=== PATIENT | male | born 1950 | race African-American/Black ===

== ENCOUNTER 2017-04-10 23:59 | Emergency (ER) | payer MEDICARE, MEDICAID ==
[~2017-04-10] VITALS: Ht 193 cm; Wt 110.0 kg
[2017-04-11 01:08] LABS: BASOPHILS % 1.1 % (0.0-2.0); EOSINOPHILS % 0.7 % (0.0-5.0); HEMATOCRIT. 39.6 % (42.0-52.0); HEMOGLOBIN. 13.1 g/dL (14.0-18.0); LYMPHOCYTES % 29.5 % (20.0-50.0); MEAN CORPUSCULAR HEMOGLOBIN 28.6 pg (28.0-32.0); MEAN CORPUSCULAR VOLUME 86.2 fL (80.0-94.0); MEAN PLATELET VOLUME 7.5 fl (7.4-10.4); NEUTROPHILS % 60.7 % (40.0-76.0); PLATELET 210 x1000/uL (130-400); RED BLOOD CELL COUNT 4.59 mill/uL (4.7-6.1); RED CELL DISTRIBUTION WIDTH 13.2 % (11.6-14.6)
[2017-04-11 01:17] LABS: CHLORIDE 108 mEq/L (98-107)
[2017-04-11 01:25] LABS: CARBON DIOXIDE 25 mEq/L (21-32)
[2017-04-11 01:52] LABS: CLARITY URINE CLEAR (CLEAR); COLOR URINE YELLOW (YELLOW); GLUCOSE URINE NEGATIVE (NEGATIVE); KETONES URINE NEGATIVE (NEGATIVE); LEUKOCYTE ESTERASE URINE NEGATIVE (NEGATIVE); NITRITE URINE NEGATIVE (NEGATIVE); OCCULT BLOOD URINE TRACE (NEGATIVE); PH URINE 5.5 (4.5-8.0); PROTEIN URINE NEGATIVE (NEGATIVE); SPECIFIC GRAVITY URINE 1.008 (1.005-1.030); UROBILINOGEN URINE 0.2 E.U./dL (0.2-1.0)
[2017-04-11 03:00] VITALS: BP 148/98
[2017-04-11] MEDS ORDERED: POTASSIUM CHLORIDE 20MEQ TABLET SR PO NR (03:15)
== END 2017-04-11 04:23 | disposition home or self-care (01) ==
LOC: ER 23:59
DX: N40.1 Benign prostatic hyperplasia with lower urinary tract symptoms (principal); R33.8 Other retention of urine
CPT/HCPCS: 36415; 51702; 80053; 81001; 85025; 99281; 99284; A4315

== ENCOUNTER 2017-04-11 13:49 | Emergency (ER) | payer MEDICARE, MEDICAID ==
[~2017-04-11] VITALS: Ht 193 cm; Wt 109.0 kg
[2017-04-11 14:31] VITALS: BP 122/80
== END 2017-04-11 16:23 | disposition home or self-care (01) ==
LOC: ER 14:10
DX: Z46.6 Encounter for fitting and adjustment of urinary device (principal); N40.0 Benign prostatic hyperplasia without lower urinary tract symptoms
CPT/HCPCS: 99281

== ENCOUNTER 2017-08-06 05:13 | Emergency (ER) | payer MEDICARE, MEDICAID ==
[~2017-08-06] VITALS: Ht 193 cm; Wt 107.0 kg
[2017-08-06 06:44] VITALS: BP 139/92
== END 2017-08-06 06:45 | disposition home or self-care (01) ==
LOC: ER 05:13
DX: R33.8 Other retention of urine (principal); N40.1 Benign prostatic hyperplasia with lower urinary tract symptoms
CPT/HCPCS: 51702; 87086; 99281; 99284; A4315

== ENCOUNTER 2017-08-06 13:35 | Emergency (ER) | payer MEDICARE, MEDICAID ==
[~2017-08-06] VITALS: Ht 193 cm; Wt 107.0 kg
[2017-08-06 20:50] VITALS: BP 118/72
== END 2017-08-06 21:39 | disposition home or self-care (01) ==
LOC: ER 15:30
DX: Z46.6 Encounter for fitting and adjustment of urinary device (principal); N40.1 Benign prostatic hyperplasia with lower urinary tract symptoms
CPT/HCPCS: 99281

== ENCOUNTER 2022-07-04 01:30 | Emergency (ER) | payer MEDICARE, MEDICAID ==
[~2022-07-04] VITALS: Ht 193 cm; Wt 101.2 kg
[2022-07-04 07:55] LABS: BASOPHILS % 0.5 % (0.0-2.0); EOSINOPHILS % 1.2 % (0.0-5.0); HEMATOCRIT. 38.9 % (42.0-52.0); HEMOGLOBIN. 12.7 g/dL (14.0-18.0); LYMPHOCYTES % 30.1 % (20.0-50.0); MEAN CORPUSCULAR HEMOGLOBIN 28.7 pg (28.0-32.0); MEAN CORPUSCULAR VOLUME 87.9 fL (80.0-94.0); MEAN PLATELET VOLUME 7.1 fl (7.4-10.4); MONOCYTES % 8.2 % (2.0-8.0); PLATELET 323 x1000/uL (130-400); RED BLOOD CELL COUNT 4.43 mill/uL (4.7-6.1); RED CELL DISTRIBUTION WIDTH 14.9 % (11.6-14.6)
[2022-07-04 07:56] LABS: CHLORIDE 107 mEq/L (98-107)
[2022-07-04 08:00] VITALS: BP 133/83
[2022-07-04 08:03] LABS: PROTHROMBIN TIME 10.9 sec (9.6-11.0)
[2022-07-04 08:54] LABS: CLARITY URINE CLEAR (CLEAR); COLOR URINE YELLOW (YELLOW); KETONES URINE NEGATIVE (NEGATIVE); LEUKOCYTE ESTERASE URINE NEGATIVE (NEGATIVE); NITRITE URINE NEGATIVE (NEGATIVE); OCCULT BLOOD URINE NEGATIVE (NEGATIVE); PH URINE 7.5 (4.5-8.0); PROTEIN URINE NEGATIVE (NEGATIVE); SPECIFIC GRAVITY URINE 1.015 (1.005-1.030)
[2022-07-04] MEDS ORDERED: POTASSIUM CHLORIDE 20MEQ/PACKET PO NR (09:00)
[2022-07-04] MEDS ORDERED: IOHEXOL-350 100 ML BOTTLE ONE (12:03)
== END 2022-07-04 13:57 | disposition home or self-care (01) ==
LOC: ER 02:11
DX: R10.84 Generalized abdominal pain (principal); E87.6 Hypokalemia; R03.0 Elevated blood-pressure reading, without diagnosis of hypertension; D64.9 Anemia, unspecified
CPT/HCPCS: 36415; 74177; 80053; 81003; 83690; 85025; 85610; 99285; Q9967

== ENCOUNTER 2024-04-09 23:31 | Inpatient (IN) | payer MEDICARE, BC, MEDICAID ==
[~2024-04-09] VITALS: Ht 193 cm; Wt 102.5 kg
[2024-04-09] MEDS: SODIUM CHLORIDE 0.9% 1000ML BAG (SEPSIS BOLUS) IV ONE (00:09)
[2024-04-09] MEDS: ACETAMINOPHEN 1000MG/100ML 100 ML IV ONE (00:35)
[2024-04-09 20:00] VITALS: BP 161/92; PULSE 128; RESP 26; TEMP 39.6428
[2024-04-09 23:34] VITALS: O2SAT 96
[2024-04-10 00:02] LABS: BASOPHILS % 0.3 % (0.0-2.0); DIFFERENTIAL COMMENT 0; EOSINOPHILS % 0.1 % (0.0-5.0); HEMATOCRIT. 41.6 % (42.0-52.0); LYMPHOCYTES % 10.1 % (20.0-50.0); MEAN CORPUSCULAR HEMOGLOBIN 30.8 pg (28.0-32.0); MEAN CORPUSCULAR HGB CONC 33.6 g/dL (31.0-37.0); MEAN CORPUSCULAR VOLUME 91.6 fL (80.0-94.0); MONOCYTES % 4.1 % (2.0-8.0); NEUTROPHILS % 85.4 % (40.0-76.0); PLATELET 206 x1000/uL (130-400); RED BLOOD CELL COUNT 4.54 mill/uL (4.7-6.1); RED CELL DISTRIBUTION WIDTH 14.2 % (11.6-14.6); WHITE BLOOD COUNT 8.6 x1000/uL (4.5-11.0)
[2024-04-10 00:17] LABS: PROTHROMBIN TIME 11.1 sec (9.6-11.0)
[2024-04-10 00:18] LABS: CARBON DIOXIDE 19 mEq/L (21-32); CHLORIDE 105 mEq/L (98-107); POTASSIUM 3.2 mEq/L (3.5-5.1); SODIUM 141 mEq/L (136-145)
[2024-04-10 00:19] LABS: CALCIUM 9.4 mg/dL (8.7-10.4)
[2024-04-10 00:24] LABS: ETHANOL BLOOD 106 mg/dL (<10); GLUCOSE 113 mg/dL (70-105); TROPONIN I HIGH SENSITIVITY 6 ng/L (3.0-53); UREA NITROGEN BLOOD 7 mg/dL (9-23)
[2024-04-10 00:25] LABS: ALANINE AMINOTRANSFERASE 33 IU/L (10-49)
[2024-04-10 00:26] LABS: ALBUMIN 4.5 g/dL (3.2-4.8); ASPARTATE AMINOTRANSFERASE 28 IU/L (<34); BILIRUBIN DIRECT 0.4 mg/dL (<=3.0); PROTEIN TOTAL 7.7 g/dL (6.0-8.3)
[2024-04-10 01:09] LABS: LACTIC ACID 5.4 mmol/L (0.4-2.0)
[2024-04-10] MEDS: PIPERACILLIN/TAZO 3.375G/50ML 50 ML IV ONE (01:21)
[2024-04-10 01:59] LABS: CLARITY URINE CLEAR (CLEAR); COLOR URINE YELLOW (YELLOW); GLUCOSE URINE NEGATIVE (NEGATIVE); KETONES URINE NEGATIVE (NEGATIVE); LEUKOCYTE ESTERASE URINE NEGATIVE (NEGATIVE); NITRITE URINE NEGATIVE (NEGATIVE); OCCULT BLOOD URINE 1+ (NEGATIVE); PROTEIN URINE NEGATIVE (NEGATIVE); SPECIFIC GRAVITY URINE 1.008 (1.005-1.030); UROBILINOGEN URINE 0.2 E.U./dL (0.2-1.0)
[2024-04-10 02:05] LABS: *AMPHETAMINES SCREEN URINE NEGATIVE (NEGATIVE); *BARBITURATES SCREEN URINE NEGATIVE (NEGATIVE); *BENZODIAZEPINES SCREEN URINE NEGATIVE (NEGATIVE); *COCAINE SCREEN URINE PRESUMPTIVE POSITIVE (NEGATIVE); METHADONE URINE SCREEN NEGATIVE (NEGATIVE); OPIATES URINE SCREEN NEGATIVE (NEGATIVE)
[2024-04-10 02:06] LABS: CANNABINOID URINE SCREEN NEGATIVE (NEGATIVE); ECSTASY MDMA SCREEN URINE NEGATIVE (NEGATIVE); PHENCYCLIDINE URINE SCREEN NEGATIVE (NEGATIVE)
[2024-04-10] MEDS: MORPHINE SULFATE 4 MG/ML INJ (FOR IV/IM USE) IV ONE (03:15)
[2024-04-10 03:16] LABS: BACTERIA URINE TRACE; RBC URINE NONE SEEN /hpf (0-2); SQUAMOUS EPITHELIAL CELL URINE FEW /lpf (RARE/1+)
[2024-04-10] MEDS: IOHEXOL-300 100 ML BOTTLE ONE (03:16)
[2024-04-10] MEDS: PIPERACILLIN/TAZO 3.375G/50ML 50 ML IV SCH (06:52)
[2024-04-10] MEDS ORDERED: MAGNESIUM/ALUMINUM HYDROXIDE/SIMETHICONE 30ML UDC PO PRN (07:30)
[2024-04-10] MEDS ORDERED: OMEPRAZOLE 20MG CAPSULE EXTENDED RELEASE PO SCH (07:50)
[2024-04-10] MEDS: SODIUM CHLORIDE 0.9% 1,000 ML IV SCH (09:14)
[2024-04-10] MEDS: ENOXAPARIN 40MG/0.4ML SYR SUBCUT SCH (09:14)
[2024-04-10] MEDS: PANTOPRAZOLE 40MG DR TABLET PO SCH (09:14)
[2024-04-10] MEDS: HYDROCODONE/ACETAMINOPHEN 5/325MG TABLET PO PRN (14:47)
[2024-04-10 19:02] VITALS: BP 153/113; PULSE 113; RESP 22; O2SAT 96
[2024-04-10] MEDS ORDERED: NALOXONE HCL 0.4MG/ML VIAL IV PRN (20:15)
[2024-04-10] MEDS ORDERED: IPRATROPIUM/ALBUTEROL 0.5-3(2.5)MG/3ML NEB HHN PRN (20:15)
[2024-04-10] MEDS: MORPHINE SULFATE 2 MG/ML INJ (NOT FOR IM USE) IV PRN (20:21)
[2024-04-10] MEDS: ACETAMINOPHEN 325MG TABLET PO PRN (20:33)
[2024-04-10 21:57] VITALS: BP 123/71; PULSE 125; RESP 22; TEMP 39.61428; O2SAT 95
[2024-04-10] MEDS: POTASSIUM CHLORIDE 20MEQ/PACKET PO NR (23:32)
[2024-04-11] VITALS (7 sets, daily range): BP systolic 115–141; BP diastolic 74–100; PULSE 93–107; RESP 14–32; TEMP 36.55848–39.11424; O2SAT 92–99
[2024-04-11 07:42] LABS: CARBON DIOXIDE 27 mEq/L (21-32); CHLORIDE 104 mEq/L (98-107); HEMOGLOBIN. 13.2 g/dL (14.0-18.0); MEAN CORPUSCULAR HEMOGLOBIN 30.3 pg (28.0-32.0); MEAN CORPUSCULAR VOLUME 91.7 fL (80.0-94.0); MEAN PLATELET VOLUME 9.1 fl (7.4-10.4); PLATELET 153 x1000/uL (130-400); POTASSIUM 3.5 mEq/L (3.5-5.1); RED BLOOD CELL COUNT 4.37 mill/uL (4.7-6.1); RED CELL DISTRIBUTION WIDTH 14.8 % (11.6-14.6); SODIUM 140 mEq/L (136-145)
[2024-04-11 07:43] LABS: CALCIUM 9.2 mg/dL (8.7-10.4); T4 FREE 1.05 ng/dL (0.89-1.76); THYROID STIMULATING HORMONE 0.81 uIU/mL (0.55-4.78)
[2024-04-11 07:46] LABS: TRIGLYCERIDE 175 mg/dL (0-150)
[2024-04-11 07:48] LABS: ALANINE AMINOTRANSFERASE 34 IU/L (10-49); CREATININE 0.9 mg/dL (0.6-1.3); DIFFERENTIAL COMMENT 1; GLUCOSE 136 mg/dL (70-105); PROTEIN TOTAL 6.8 g/dL (6.0-8.3); UREA NITROGEN BLOOD 8 mg/dL (9-23)
[2024-04-11 07:49] LABS: ALBUMIN 4.1 g/dL (3.2-4.8); ASPARTATE AMINOTRANSFERASE 40 IU/L (<34); LDL CHOLESTEROL 26 mg/dL (5-100)
[2024-04-11 07:50] LABS: BILIRUBIN DIRECT 0.6 mg/dL (<=3.0); BILIRUBIN TOTAL 1.5 mg/dL (0.1-1.0); CHOLESTEROL 79 mg/dL (<200); HDL CHOLESTEROL < 20 mg/dL (>55); PHOSPHORUS 2.6 mg/dL (2.5-4.9)
[2024-04-11 08:06] LABS: TROPONIN I HIGH SENSITIVITY 171 ng/L (3.0-53)
[2024-04-11] MEDS: PIPERACILLIN/TAZO 3.375G/50ML IV SCH (14:02)
[2024-04-11 17:33] LABS: PLATELET ESTIMATE NORMAL
[2024-04-11] MEDS: MEROPENEM 1G/100ML 100 ML IV SCH (22:59)
[2024-04-12] VITALS (7 sets, daily range): BP systolic 130–140; BP diastolic 83–97; PULSE 100–122; RESP 18–33; TEMP 37.05852–39.55872; O2SAT 92–96
[2024-04-12 06:48] LABS: BASOPHILS % 0.4 % (0.0-2.0); EOSINOPHILS % 0.3 % (0.0-5.0); HEMATOCRIT. 43.3 % (42.0-52.0); HEMOGLOBIN. 13.6 g/dL (14.0-18.0); LYMPHOCYTES % 12.8 % (20.0-50.0); MEAN CORPUSCULAR HEMOGLOBIN 29.3 pg (28.0-32.0); MEAN CORPUSCULAR HGB CONC 31.4 g/dL (31.0-37.0); MEAN CORPUSCULAR VOLUME 93.3 fL (80.0-94.0); MEAN PLATELET VOLUME 9.1 fl (7.4-10.4); MONOCYTES % 1.8 % (2.0-8.0); NEUTROPHILS % 84.7 % (40.0-76.0); PLATELET 145 x1000/uL (130-400); RED BLOOD CELL COUNT 4.64 mill/uL (4.7-6.1); RED CELL DISTRIBUTION WIDTH 15.2 % (11.6-14.6); WHITE BLOOD COUNT 7.9 x1000/uL (4.5-11.0)
[2024-04-12 07:15] LABS: CHLORIDE 102 mEq/L (98-107); POTASSIUM 3.1 mEq/L (3.5-5.1); SODIUM 137 mEq/L (136-145)
[2024-04-12 07:16] LABS: CALCIUM 9.1 mg/dL (8.7-10.4); CARBON DIOXIDE 26 mEq/L (21-32)
[2024-04-12 07:21] LABS: CREATININE 0.8 mg/dL (0.6-1.3); GLUCOSE 126 mg/dL (70-105); UREA NITROGEN BLOOD 7 mg/dL (9-23)
[2024-04-12 07:23] LABS: ALANINE AMINOTRANSFERASE 30 IU/L (10-49); ASPARTATE AMINOTRANSFERASE 37 IU/L (<34); BILIRUBIN DIRECT 0.6 mg/dL (<=3.0); BILIRUBIN TOTAL 1.4 mg/dL (0.1-1.0); PHOSPHORUS 2.3 mg/dL (2.5-4.9)
[2024-04-12 07:24] LABS: PROTEIN TOTAL 6.8 g/dL (6.0-8.3)
[2024-04-12] MEDS: POTASSIUM CHLORIDE 20MEQ TABLET SR PO NR (22:11)
[2024-04-13] VITALS: PULSE 92; RESP 29; TEMP 37.61412; O2SAT 95
[2024-04-13 00:31] VITALS: BP 123/84; PULSE 93; RESP 21; O2SAT 94
[2024-04-13 04:03] VITALS: BP 134/86; PULSE 96; RESP 21; TEMP 37.00296; O2SAT 98
[2024-04-13 07:35] LABS: CHLORIDE 105 mEq/L (98-107); POTASSIUM 3.7 mEq/L (3.5-5.1); SODIUM 138 mEq/L (136-145)
[2024-04-13 07:36] LABS: CARBON DIOXIDE 28 mEq/L (21-32)
[2024-04-13 07:37] LABS: CALCIUM 8.4 mg/dL (8.7-10.4)
[2024-04-13 07:40] LABS: BASOPHILS % 0.4 % (0.0-2.0); EOSINOPHILS % 0.4 % (0.0-5.0); HEMATOCRIT. 34.8 % (42.0-52.0); HEMOGLOBIN. 11.6 g/dL (14.0-18.0); LYMPHOCYTES % 9.6 % (20.0-50.0); MEAN CORPUSCULAR HEMOGLOBIN 30.4 pg (28.0-32.0); MEAN CORPUSCULAR HGB CONC 33.3 g/dL (31.0-37.0); MEAN CORPUSCULAR VOLUME 91.1 fL (80.0-94.0); MEAN PLATELET VOLUME 9.6 fl (7.4-10.4); NEUTROPHILS % 82.6 % (40.0-76.0); PLATELET 133 x1000/uL (130-400); RED BLOOD CELL COUNT 3.82 mill/uL (4.7-6.1); RED CELL DISTRIBUTION WIDTH 14.6 % (11.6-14.6); WHITE BLOOD COUNT 8.5 x1000/uL (4.5-11.0)
[2024-04-13 07:42] LABS: CREATININE 0.7 mg/dL (0.6-1.3); GLUCOSE 144 mg/dL (70-105); UREA NITROGEN BLOOD 10 mg/dL (9-23)
[2024-04-13 08:00] VITALS: BP 103/92; PULSE 98; RESP 20; TEMP 37.00296; O2SAT 96
[2024-04-13] MEDS: FAMOTIDINE 20MG TABLET PO SCH (08:28)
[2024-04-13 12:00] VITALS: BP 112/63; PULSE 81; RESP 24; TEMP 36.83628; O2SAT 97
[2024-04-13 20:00] VITALS: BP 149/85; PULSE 87; RESP 20; TEMP 36.61404; O2SAT 98
[2024-04-14] VITALS (7 sets, daily range): BP systolic 130–159; BP diastolic 60–101; PULSE 83–102; RESP 19–26; TEMP 36.16956–38.11416; O2SAT 96–99
[2024-04-14 08:43] LABS: CARBON DIOXIDE 26 mEq/L (21-32); CHLORIDE 104 mEq/L (98-107); POTASSIUM 3.6 mEq/L (3.5-5.1); SODIUM 137 mEq/L (136-145)
[2024-04-14 08:44] LABS: CALCIUM 8.6 mg/dL (8.7-10.4)
[2024-04-14 08:49] LABS: CREATININE 0.7 mg/dL (0.6-1.3); GLUCOSE 121 mg/dL (70-105); UREA NITROGEN BLOOD 9 mg/dL (9-23)
[2024-04-14 09:00] LABS: BASOPHILS % 0.3 % (0.0-2.0); DIFFERENTIAL COMMENT 0; EOSINOPHILS % 0.4 % (0.0-5.0); HEMATOCRIT. 36.3 % (42.0-52.0); HEMOGLOBIN. 11.7 g/dL (14.0-18.0); LYMPHOCYTES % 9.7 % (20.0-50.0); MEAN CORPUSCULAR HEMOGLOBIN 29.2 pg (28.0-32.0); MEAN CORPUSCULAR HGB CONC 32.1 g/dL (31.0-37.0); MEAN PLATELET VOLUME 9.8 fl (7.4-10.4); MONOCYTES % 5.2 % (2.0-8.0); NEUTROPHILS % 84.4 % (40.0-76.0); PLATELET 148 x1000/uL (130-400); RED BLOOD CELL COUNT 3.99 mill/uL (4.7-6.1); RED CELL DISTRIBUTION WIDTH 14.4 % (11.6-14.6); WHITE BLOOD COUNT 12.7 x1000/uL (4.5-11.0)
[2024-04-15] VITALS (7 sets, daily range): BP systolic 136–165; BP diastolic 68–87; PULSE 79–103; RESP 14–24; TEMP 36.83628–38.55864; O2SAT 95–98
[2024-04-15] MEDS: CYCLOBENZAPRINE 10MG TABLET PO PRN (13:23)
[2024-04-16] VITALS (7 sets, daily range): BP systolic 111–152; BP diastolic 73–103; PULSE 80–98; RESP 16–22; TEMP 36.50292–37.16964; O2SAT 95–97
[2024-04-16 06:24] LABS: CARBON DIOXIDE 26 mEq/L (21-32); CHLORIDE 107 mEq/L (98-107); POTASSIUM 3.5 mEq/L (3.5-5.1); SODIUM 140 mEq/L (136-145)
[2024-04-16 06:25] LABS: CALCIUM 8.6 mg/dL (8.7-10.4)
[2024-04-16 06:30] LABS: CREATININE 0.8 mg/dL (0.6-1.3); GLUCOSE 126 mg/dL (70-105); UREA NITROGEN BLOOD 9 mg/dL (9-23)
[2024-04-16 06:31] LABS: BASOPHILS % 0.4 % (0.0-2.0); DIFFERENTIAL COMMENT 0; EOSINOPHILS % 0.7 % (0.0-5.0); HEMATOCRIT. 36.1 % (42.0-52.0); HEMOGLOBIN. 11.7 g/dL (14.0-18.0); LYMPHOCYTES % 13.3 % (20.0-50.0); MEAN CORPUSCULAR HEMOGLOBIN 29.4 pg (28.0-32.0); MEAN CORPUSCULAR HGB CONC 32.3 g/dL (31.0-37.0); MEAN CORPUSCULAR VOLUME 91.1 fL (80.0-94.0); MEAN PLATELET VOLUME 9.1 fl (7.4-10.4); MONOCYTES % 10.4 % (2.0-8.0); NEUTROPHILS % 75.2 % (40.0-76.0); PLATELET 278 x1000/uL (130-400); RED BLOOD CELL COUNT 3.97 mill/uL (4.7-6.1); WHITE BLOOD COUNT 10.5 x1000/uL (4.5-11.0)
[2024-04-16] MEDS: HYDROCODONE/ACETAMINOPHEN 5/325MG TABLET PO PRN (08:24)
[2024-04-16] MEDS: ONDANSETRON HCL 4MG/2ML INJ IV PRN (10:25)
[2024-04-16] MEDS: LIDOCAINE 5% PATCH TOP SCH (12:42)
[2024-04-16] MEDS: VANCOMYCIN 2,000 MG in DEXT 5% WATER 500 ML IV SCH (23:01)
[2024-04-17] VITALS: BP 143/86; PULSE 82; RESP 22; TEMP 36.83628; O2SAT 95
[2024-04-17 04:00] VITALS: BP 132/76; PULSE 89; RESP 18; TEMP 36.78072; O2SAT 97
[2024-04-17 07:09] LABS: AMMONIA 30 uMol/L (<32)
[2024-04-17 07:20] LABS: FOLIC ACID (FOLATE) SERUM 11.76 ng/mL (>5.38); VITAMIN B12 SERUM 410 pg/mL (211-911)
[2024-04-17 08:00] VITALS: BP 132/63; PULSE 97; RESP 20; TEMP 37.503; O2SAT 95
[2024-04-17] MEDS: VANCOMYCIN 1GM/200ML PMX (BAXTER) IV SCH (11:18)
[2024-04-17 12:00] VITALS: BP 143/87; PULSE 80; RESP 22; O2SAT 95
[2024-04-17] MEDS ORDERED: OMEP20CA14 PO (13:59)
[2024-04-17] MEDS ORDERED: GABA-529 PO (13:59)
[2024-04-17] MEDS ORDERED: PRAZ2CAP2 PO (13:59)
[2024-04-17] MEDS ORDERED: POTA-354 PO (13:59)
[2024-04-17] MEDS ORDERED: PANT40TA51 PO (13:59)
[2024-04-17] MEDS ORDERED: CYCL10TA21 PO (13:59)
[2024-04-17] MEDS ORDERED: MULT-1279 PO (13:59)
[2024-04-17] MEDS ORDERED: AMLO10TA4 PO (13:59)
[2024-04-17] MEDS ORDERED: METF-414 PO (13:59)
[2024-04-17] MEDS ORDERED: MELA10TA20 PO (13:59)
[2024-04-17] MEDS ORDERED: ATOR40TA70 PO (13:59)
[2024-04-17] MEDS ORDERED: TAMS-11 PO (13:59)
[2024-04-17 16:23] VITALS: BP 151/92; PULSE 81; RESP 19; TEMP 37.33632
[2024-04-17 20:00] VITALS: BP 153/92; PULSE 93; RESP 15; TEMP 37.72524; O2SAT 97
[2024-04-18] VITALS: BP 155/95; PULSE 89; RESP 20; TEMP 37.33632; O2SAT 97
[2024-04-18 04:00] VITALS: BP 144/122; PULSE 90; RESP 20; TEMP 37.28076; O2SAT 98
[2024-04-18 08:00] VITALS: BP_SYST 104; BP_SYST 160; BP_DIAS 77; BP_DIAS 80; PULSE 100; PULSE 90; RESP 18; TEMP 36.55848; TEMP 37.2252; O2SAT 99
[2024-04-18 08:00] LABS: CARBON DIOXIDE 27 mEq/L (21-32); CHLORIDE 107 mEq/L (98-107); SODIUM 140 mEq/L (136-145)
[2024-04-18 08:01] LABS: CALCIUM 8.9 mg/dL (8.7-10.4)
[2024-04-18 08:05] LABS: CREATININE 0.8 mg/dL (0.6-1.3)
[2024-04-18 08:06] LABS: BASOPHILS % 0.4 % (0.0-2.0); DIFFERENTIAL COMMENT 0; EOSINOPHILS % 0.9 % (0.0-5.0); GLUCOSE 117 mg/dL (70-105); HEMATOCRIT. 35.2 % (42.0-52.0); HEMOGLOBIN. 11.3 g/dL (14.0-18.0); LYMPHOCYTES % 19.6 % (20.0-50.0); MEAN CORPUSCULAR HEMOGLOBIN 29.5 pg (28.0-32.0); MEAN CORPUSCULAR HGB CONC 32.1 g/dL (31.0-37.0); MEAN CORPUSCULAR VOLUME 91.9 fL (80.0-94.0); MEAN PLATELET VOLUME 8.2 fl (7.4-10.4); MONOCYTES % 11.6 % (2.0-8.0); NEUTROPHILS % 67.5 % (40.0-76.0); PLATELET 412 x1000/uL (130-400); RED BLOOD CELL COUNT 3.83 mill/uL (4.7-6.1); RED CELL DISTRIBUTION WIDTH 14.4 % (11.6-14.6); UREA NITROGEN BLOOD 8 mg/dL (9-23); WHITE BLOOD COUNT 8.7 x1000/uL (4.5-11.0)
[2024-04-18 08:08] LABS: PHOSPHORUS 3.4 mg/dL (2.5-4.9)
[2024-04-18] MEDS: CLONIDINE 0.1MG TABLET PO PRN (09:06)
[2024-04-18 12:00] VITALS: BP 122/93; PULSE 101; RESP 19; TEMP 36.9474; O2SAT 98
[2024-04-18 12:43] VITALS: BP 141/83; PULSE 89; RESP 20; TEMP 36.78072; O2SAT 100
[2024-04-18 20:00] VITALS: BP 145/86; PULSE 96; RESP 19; TEMP 37.44744; O2SAT 96
[2024-04-18] MEDS: VANCOMYCIN 1.25GM/250ML 250 ML IV SCH (20:22)
[2024-04-19] VITALS: BP 140/72; PULSE 90; RESP 20; TEMP 37.16964; O2SAT 97
[2024-04-19 04:00] VITALS: BP 127/85; PULSE 89; RESP 18; TEMP 36.72516; O2SAT 97
[2024-04-19 08:04] VITALS: BP 137/72; PULSE 81; RESP 20; TEMP 36.114; O2SAT 100
[2024-04-19 12:00] VITALS: BP 119/74; PULSE 88; RESP 20; TEMP 36.78072; O2SAT 100
[2024-04-19 16:00] VITALS: BP 110/80; PULSE 89; RESP 20; TEMP 36.6696; O2SAT 100
[2024-04-19 20:00] VITALS: BP 121/88; PULSE 96; RESP 18; TEMP 36.3918; O2SAT 99
[2024-04-20] VITALS: BP 126/83; PULSE 84; RESP 18; TEMP 37.28076; O2SAT 98
[2024-04-20 04:00] VITALS: BP 131/81; PULSE 85; RESP 18; TEMP 36.3918; O2SAT 100
[2024-04-20 08:00] VITALS: BP 128/75; PULSE 85; RESP 20; TEMP 36.114; O2SAT 100
[2024-04-20 11:39] LABS: HEMATOCRIT 36.2 % (42.0-52.0); HEMOGLOBIN 11.6 g/dL (14.0-18.0); MEAN CORPUSCULAR HEMOGLOBIN 29.2 pg (28.0-32.0); MEAN CORPUSCULAR HGB CONC 32.1 g/dL (31.0-37.0); MEAN CORPUSCULAR VOLUME 90.9 fL (80.0-94.0); PLATELET 525 x1000/uL (130-400); RED BLOOD CELL COUNT 3.99 mill/uL (4.7-6.1); RED CELL DISTRIBUTION WIDTH 14.6 % (11.6-14.6)
[2024-04-20 11:45] LABS: CHLORIDE 106 mEq/L (98-107); POTASSIUM 3.8 mEq/L (3.5-5.1); SODIUM 137 mEq/L (136-145)
[2024-04-20 11:46] LABS: CARBON DIOXIDE 25 mEq/L (21-32)
[2024-04-20 11:47] LABS: CALCIUM 9.1 mg/dL (8.7-10.4)
[2024-04-20 11:51] LABS: CREATININE 0.7 mg/dL (0.6-1.3); GLUCOSE 167 mg/dL (70-105)
[2024-04-20 11:52] LABS: UREA NITROGEN BLOOD 10 mg/dL (9-23)
[2024-04-20 12:00] VITALS: BP 132/50; PULSE 86; RESP 20; TEMP 36.114; O2SAT 99
[2024-04-20 16:00] VITALS: BP 132/77; PULSE 80; RESP 20; TEMP 35.5584; O2SAT 100
[2024-04-20 20:00] VITALS: BP 132/79; PULSE 92; RESP 19; TEMP 37.05852; O2SAT 97
[2024-04-20] MEDS: LACTOBACILLUS GG CAPSULE PO SCH (23:29)
[2024-04-21] VITALS (7 sets, daily range): BP systolic 125–139; BP diastolic 74–82; PULSE 87–91; RESP 18–20; TEMP 35.78064–37.2252; O2SAT 95–100
[2024-04-21] MEDS: HYDROCODONE/ACETAMINOPHEN 5/325MG TABLET PO PRN (12:32)
[2024-04-22] VITALS: BP 127/78; PULSE 91; RESP 20; TEMP 36.61404; O2SAT 96
[2024-04-22 04:00] VITALS: BP 139/78; PULSE 91; RESP 20; TEMP 36.61404; O2SAT 95
[2024-04-22 06:10] LABS: BASOPHILS % 0.6 % (0.0-2.0); EOSINOPHILS % 0.8 % (0.0-5.0); HEMATOCRIT. 36.9 % (42.0-52.0); HEMOGLOBIN. 11.8 g/dL (14.0-18.0); LYMPHOCYTES % 21.1 % (20.0-50.0); MEAN CORPUSCULAR HEMOGLOBIN 29.4 pg (28.0-32.0); MEAN PLATELET VOLUME 7.8 fl (7.4-10.4); MONOCYTES % 8.2 % (2.0-8.0); NEUTROPHILS % 69.3 % (40.0-76.0); PLATELET 552 x1000/uL (130-400); RED BLOOD CELL COUNT 4.02 mill/uL (4.7-6.1); RED CELL DISTRIBUTION WIDTH 14.5 % (11.6-14.6)
[2024-04-22 06:32] LABS: CHLORIDE 106 mEq/L (98-107); POTASSIUM 4.2 mEq/L (3.5-5.1); SODIUM 137 mEq/L (136-145)
[2024-04-22 06:33] LABS: CALCIUM 9.2 mg/dL (8.7-10.4); CARBON DIOXIDE 26 mEq/L (21-32)
[2024-04-22 06:38] LABS: CREATININE 0.7 mg/dL (0.6-1.3); GLUCOSE 132 mg/dL (70-105); UREA NITROGEN BLOOD 7 mg/dL (9-23)
[2024-04-22 08:00] VITALS: BP 141/77; PULSE 89; RESP 18; TEMP 36.6696; O2SAT 100
[2024-04-22 12:00] VITALS: BP 138/88; PULSE 104; RESP 20; TEMP 37.16964; O2SAT 97
[2024-04-22] MEDS ORDERED: NALOXONE HCL 0.4MG/ML VIAL IV PRN (13:30)
[2024-04-22] MEDS: HYDROCODONE/ACETAMINOPHEN 7.5/325MG TABLET PO PRN (15:16)
[2024-04-22 16:00] VITALS: BP 137/84; PULSE 94; RESP 18; TEMP 36.78072; O2SAT 100
[2024-04-23 08:00] VITALS: BP 132/77; PULSE 89; RESP 20; TEMP 36.114; O2SAT 100
[2024-04-23] MEDS: DOCUSATE SODIUM 100MG CAPSULE PO PRN (15:45)
[2024-04-23 16:00] VITALS: BP 143/82; PULSE 91; RESP 18; TEMP 36.6696; O2SAT 100
[2024-04-23 20:00] VITALS: BP 143/88; PULSE 95; RESP 20; TEMP 36.3918; O2SAT 97
[2024-04-24] VITALS: BP 126/76; PULSE 94; RESP 20; TEMP 36.28068; O2SAT 98
[2024-04-24 04:00] VITALS: BP 129/83; PULSE 90; RESP 20; TEMP 36.22512; O2SAT 97
[2024-04-24 08:00] VITALS: BP 132/80; PULSE 91; RESP 18; TEMP 36.50292; O2SAT 97
[2024-04-24 12:00] VITALS: BP 127/77; PULSE 84; RESP 19; TEMP 36.44736; O2SAT 97
[2024-04-24] MEDS: MEROPENEM 1G/100ML 100 ML IV SCH (15:41)
[2024-04-24 16:00] VITALS: BP 124/81; PULSE 81; RESP 19; TEMP 36.50292; O2SAT 97
[2024-04-24 20:00] VITALS: BP 131/77; PULSE 94; RESP 20; TEMP 36.78072; O2SAT 97
[2024-04-25] VITALS: BP 116/73; PULSE 83; RESP 20; TEMP 37.00296; O2SAT 97
[2024-04-25 04:00] VITALS: BP 121/77; PULSE 87; RESP 20; TEMP 36.6696; O2SAT 97
[2024-04-25 06:18] LABS: CARBON DIOXIDE 27 mEq/L (21-32); CHLORIDE 107 mEq/L (98-107); POTASSIUM 3.9 mEq/L (3.5-5.1); SODIUM 140 mEq/L (136-145)
[2024-04-25 06:19] LABS: BASOPHILS % 0.7 % (0.0-2.0); CALCIUM 9.3 mg/dL (8.7-10.4); EOSINOPHILS % 1.2 % (0.0-5.0); HEMOGLOBIN. 12.1 g/dL (14.0-18.0); LYMPHOCYTES % 25.1 % (20.0-50.0); MEAN CORPUSCULAR HEMOGLOBIN 29.5 pg (28.0-32.0); MEAN CORPUSCULAR HGB CONC 31.9 g/dL (31.0-37.0); MEAN CORPUSCULAR VOLUME 92.5 fL (80.0-94.0); MEAN PLATELET VOLUME 7.8 fl (7.4-10.4); MONOCYTES % 8.5 % (2.0-8.0); NEUTROPHILS % 64.5 % (40.0-76.0); PLATELET 478 x1000/uL (130-400); RED BLOOD CELL COUNT 4.11 mill/uL (4.7-6.1); RED CELL DISTRIBUTION WIDTH 14.1 % (11.6-14.6); WHITE BLOOD COUNT 7.2 x1000/uL (4.5-11.0)
[2024-04-25 06:23] LABS: CREATININE 0.7 mg/dL (0.6-1.3)
[2024-04-25 06:24] LABS: GLUCOSE 123 mg/dL (70-105); UREA NITROGEN BLOOD 10 mg/dL (9-23)
[2024-04-25 06:26] LABS: PHOSPHORUS 3.2 mg/dL (2.5-4.9)
[2024-04-25 12:00] VITALS: BP 131/85; PULSE 89; RESP 16; TEMP 36.44736; O2SAT 99
[2024-04-25 16:00] VITALS: BP 121/84; PULSE 92; RESP 18; TEMP 36.55848; O2SAT 99
[2024-04-25 20:00] VITALS: BP 120/75; PULSE 96; RESP 20; TEMP 36.22512; O2SAT 98
[2024-04-26] VITALS: BP 116/74; PULSE 90; RESP 18; TEMP 36.33624; O2SAT 97
[2024-04-26 04:00] VITALS: BP 116/77; PULSE 99; RESP 18; TEMP 36.22512; O2SAT 95
[2024-04-26 08:00] VITALS: BP 116/74; PULSE 90; RESP 19; TEMP 36.9474; O2SAT 97
[2024-04-26] MEDS: CYANOCOBALAMIN 1000MCG/ML VIAL IM SCH (08:33)
[2024-04-26] MEDS: ERGOCALCIFEROL 50000UNITS CAPSULE PO SCH (08:33)
[2024-04-26] MEDS: VANCOMYCIN 1.25GM/250ML 250 ML IV SCH (09:12)
[2024-04-26 12:00] VITALS: BP 110/58; PULSE 70; RESP 16; TEMP 36.28068; O2SAT 99
[2024-04-26 16:00] VITALS: BP 117/89; PULSE 91; RESP 18; TEMP 36.00288; O2SAT 96
[2024-04-26 20:00] VITALS: BP 130/73; PULSE 83; RESP 15; TEMP 36.05844; O2SAT 99
[2024-04-27] VITALS: BP 132/77; PULSE 81; RESP 18; TEMP 36.28068; O2SAT 100
[2024-04-27 08:00] VITALS: BP 126/77; PULSE 89; RESP 19; TEMP 36.22512; O2SAT 100
[2024-04-27 08:07] LABS: EOSINOPHILS % 1.9 % (0.0-5.0); HEMATOCRIT. 35.3 % (42.0-52.0); HEMOGLOBIN. 11.7 g/dL (14.0-18.0); LYMPHOCYTES % 25.9 % (20.0-50.0); MEAN CORPUSCULAR HEMOGLOBIN 30.3 pg (28.0-32.0); MEAN CORPUSCULAR HGB CONC 33.3 g/dL (31.0-37.0); MEAN CORPUSCULAR VOLUME 91.1 fL (80.0-94.0); MEAN PLATELET VOLUME 7.6 fl (7.4-10.4); MONOCYTES % 10.3 % (2.0-8.0); NEUTROPHILS % 60.9 % (40.0-76.0); PLATELET 374 x1000/uL (130-400); RED BLOOD CELL COUNT 3.87 mill/uL (4.7-6.1); RED CELL DISTRIBUTION WIDTH 13.7 % (11.6-14.6); WHITE BLOOD COUNT 5.4 x1000/uL (4.5-11.0)
[2024-04-27 08:32] LABS: CARBON DIOXIDE 27 mEq/L (21-32); CHLORIDE 106 mEq/L (98-107); POTASSIUM 3.9 mEq/L (3.5-5.1); SODIUM 139 mEq/L (136-145)
[2024-04-27 08:33] LABS: CALCIUM 9.2 mg/dL (8.7-10.4)
[2024-04-27 08:38] LABS: CREATININE 0.7 mg/dL (0.6-1.3); GLUCOSE 114 mg/dL (70-105); UREA NITROGEN BLOOD 9 mg/dL (9-23)
[2024-04-27 12:00] VITALS: BP 128/83; PULSE 86; RESP 18; TEMP 36.3918; O2SAT 100
[2024-04-27] MEDS ORDERED: NALOXONE HCL 0.4MG/ML VIAL IV PRN (15:00)
[2024-04-27] MEDS: DOCUSATE SODIUM 250MG CAPSULE PO SCH (15:16)
[2024-04-27] MEDS: LACTULOSE 20G/30ML UDC PO NR (15:16)
[2024-04-27 16:00] VITALS: BP 130/81; PULSE 64; RESP 18; TEMP 36.16956; O2SAT 100
[2024-04-27 20:00] VITALS: BP 129/74; PULSE 82; RESP 18; TEMP 36.22512; O2SAT 96
[2024-04-28] VITALS: BP 136/84; PULSE 125; RESP 18; TEMP 36.16956; O2SAT 95
[2024-04-28] MEDS: HYDROCODONE/ACETAMINOPHEN 10/325MG TABLET PO PRN (01:55)
[2024-04-28 04:00] VITALS: BP 136/84; PULSE 125; RESP 18; TEMP 36.16956; O2SAT 95
[2024-04-28 08:00] VITALS: BP 130/82; PULSE 109; RESP 18; TEMP 36.28068; O2SAT 98
[2024-04-28 12:00] VITALS: BP 124/79; PULSE 98; RESP 16; TEMP 36.55848; O2SAT 100
[2024-04-28 16:00] VITALS: BP 126/74; PULSE 75; RESP 20; TEMP 36.44736; O2SAT 100
[2024-04-28 20:00] VITALS: BP 139/75; PULSE 95; RESP 18; TEMP 36.44736; O2SAT 100
[2024-04-29] VITALS: BP 120/80; PULSE 97; RESP 19; TEMP 36.55848; O2SAT 100
[2024-04-29 04:00] VITALS: BP 125/74; PULSE 98; RESP 20; TEMP 36.6696; O2SAT 95
[2024-04-29 08:00] VITALS: BP 146/81; PULSE 95; RESP 17; TEMP 36.6696; O2SAT 98
[2024-04-29 12:00] VITALS: BP 126/81; PULSE 93; RESP 18; TEMP 36.3918; O2SAT 99
[2024-04-29 16:00] VITALS: BP 115/81; PULSE 54; RESP 17; TEMP 36.50292; O2SAT 98
[2024-04-29 20:00] VITALS: BP 130/84; PULSE 89; RESP 20; TEMP 36.72516; O2SAT 99
[2024-04-30] VITALS: BP 113/83; PULSE 79; RESP 20; TEMP 36.61404; O2SAT 98
[2024-04-30 04:00] VITALS: BP 113/77; PULSE 88; RESP 20; TEMP 36.6696; O2SAT 98
[2024-04-30 08:00] VITALS: BP 137/85; PULSE 90; RESP 20; TEMP 36.16956; O2SAT 95
[2024-04-30 12:00] VITALS: BP 124/79; PULSE 92; RESP 20; TEMP 36.55848; O2SAT 97
[2024-04-30 16:00] VITALS: BP 125/74; PULSE 94; RESP 20; TEMP 36.33624; O2SAT 97
[2024-04-30 20:00] VITALS: BP 131/81; PULSE 94; RESP 17; TEMP 36.55848; O2SAT 99
[2024-05-01] VITALS: BP 155/91; PULSE 82; RESP 18; TEMP 36.55848; O2SAT 100
[2024-05-01 04:00] VITALS: BP 126/78; PULSE 90; RESP 20; TEMP 36.55848; O2SAT 97
[2024-05-01 06:53] LABS: CHLORIDE 105 mEq/L (98-107); SODIUM 139 mEq/L (136-145)
[2024-05-01 06:54] LABS: CALCIUM 9.3 mg/dL (8.7-10.4); CARBON DIOXIDE 28 mEq/L (21-32)
[2024-05-01 06:55] LABS: HEMATOCRIT. 36.1 % (42.0-52.0); HEMOGLOBIN. 11.9 g/dL (14.0-18.0); LYMPHOCYTES % 34.8 % (20.0-50.0); MEAN CORPUSCULAR HEMOGLOBIN 30.2 pg (28.0-32.0); MEAN CORPUSCULAR HGB CONC 33.1 g/dL (31.0-37.0); MEAN CORPUSCULAR VOLUME 91.2 fL (80.0-94.0); MEAN PLATELET VOLUME 8.2 fl (7.4-10.4); MONOCYTES % 6.3 % (2.0-8.0); NEUTROPHILS % 55.9 % (40.0-76.0); PLATELET 293 x1000/uL (130-400); RED BLOOD CELL COUNT 3.96 mill/uL (4.7-6.1); RED CELL DISTRIBUTION WIDTH 13.6 % (11.6-14.6); WHITE BLOOD COUNT 4.1 x1000/uL (4.5-11.0)
[2024-05-01 06:59] LABS: CREATININE 0.7 mg/dL (0.6-1.3); GLUCOSE 103 mg/dL (70-105); UREA NITROGEN BLOOD 9 mg/dL (9-23)
[2024-05-01 08:11] VITALS: BP 118/76; PULSE 84; RESP 20; TEMP 36.114; O2SAT 100
[2024-05-01 12:00] VITALS: BP 126/72; PULSE 108; RESP 18; TEMP 36.05844; O2SAT 100
[2024-05-01 16:00] VITALS: BP 124/50; PULSE 83; RESP 18; TEMP 36.05844; O2SAT 100
[2024-05-01 20:00] VITALS: BP 127/87; PULSE 94; RESP 18; TEMP 36.44736; O2SAT 100
[2024-05-02] VITALS: BP 127/79; PULSE 85; RESP 20; TEMP 36.78072; O2SAT 99
[2024-05-02 04:00] VITALS: BP 130/89; PULSE 62; RESP 19; TEMP 36.50292; O2SAT 96
[2024-05-02 07:48] VITALS: BP 137/82; PULSE 96; RESP 18; TEMP 36.44736; O2SAT 99
[2024-05-02 11:48] VITALS: BP 118/79; PULSE 101; RESP 18; TEMP 36.33624; O2SAT 100
[2024-05-02 16:00] VITALS: BP 137/85; PULSE 97; RESP 18; TEMP 36.55848; O2SAT 98
[2024-05-02] MEDS ORDERED: NALOXONE HCL 0.4MG/ML VIAL IV PRN (16:45)
[2024-05-02] MEDS: HYDROCODONE/ACETAMINOPHEN 10/325MG TABLET PO PRN (16:57)
[2024-05-03] VITALS: BP 127/81; PULSE 96; RESP 19; TEMP 37.2252; O2SAT 98
[2024-05-03 04:00] VITALS: BP 127/83; PULSE 102; RESP 18; TEMP 37.05852; O2SAT 97
[2024-05-03 08:00] VITALS: BP 111/61; PULSE 88; RESP 18; TEMP 36.55848; O2SAT 99
[2024-05-03 12:00] VITALS: BP 123/71; PULSE 100; RESP 19; TEMP 36.72516; O2SAT 99
[2024-05-03 16:00] VITALS: BP 112/68; PULSE 71; RESP 19; TEMP 35.94732; O2SAT 100
[2024-05-03 20:00] VITALS: BP 101/75; PULSE 96; RESP 18; TEMP 36.44736; O2SAT 100
[2024-05-04] VITALS: BP 116/73; PULSE 93; RESP 18; TEMP 36.44736; O2SAT 98
[2024-05-04 04:00] VITALS: BP 134/78; PULSE 95; RESP 18; TEMP 36.3918; O2SAT 100
[2024-05-04 07:54] VITALS: BP 111/73; PULSE 91; RESP 16; TEMP 36.44736; O2SAT 95
[2024-05-04] MEDS: VANCOMYCIN 1.25GM PMX (XELLIA) 250 ML IV SCH (09:01)
[2024-05-04 12:00] VITALS: BP 112/69; PULSE 89; RESP 16; TEMP 36.55848; O2SAT 97
[2024-05-04 16:00] VITALS: BP 134/76; PULSE 91; RESP 20; TEMP 36.55848; O2SAT 97
[2024-05-04 20:00] VITALS: BP 132/85; PULSE 100; RESP 19; TEMP 36.05844; O2SAT 100
[2024-05-05] VITALS: BP 139/87; PULSE 90; RESP 18; TEMP 36.3918; O2SAT 96
[2024-05-05 04:00] VITALS: BP 131/79; PULSE 88; RESP 18; TEMP 36.22512; O2SAT 95
[2024-05-05 08:00] VITALS: BP 122/81; PULSE 86; RESP 19; TEMP 36.33624; O2SAT 96
[2024-05-05] MEDS: LACTULOSE 20G/30ML UDC PO SCH (13:05)
[2024-05-05 20:00] VITALS: BP 118/79; PULSE 90; RESP 18; TEMP 36.61404; O2SAT 96
[2024-05-06] VITALS: BP 117/80; PULSE 80; RESP 18; TEMP 37.61412; O2SAT 96
[2024-05-06 04:00] VITALS: BP 112/74; PULSE 104; RESP 15; TEMP 37.44744; O2SAT 99
[2024-05-06 08:00] VITALS: BP 107/75; PULSE 96; RESP 17; TEMP 36.50292; O2SAT 99
[2024-05-06 12:00] VITALS: BP 119/73; PULSE 93; RESP 18; TEMP 36.33624; O2SAT 98
[2024-05-06 16:00] VITALS: BP 116/78; PULSE 88; RESP 20; TEMP 36.22512; O2SAT 97
[2024-05-06 20:00] VITALS: BP 118/81; PULSE 93; RESP 18; TEMP 36.16956; O2SAT 96
[2024-05-07] VITALS: BP 129/63; PULSE 104; RESP 18; TEMP 36.22512; O2SAT 95
== END 2024-05-07 02:15 | disposition short-term general hospital (02) | DRG 871 ==
LOC: ER 23:31 → 3WST 04-10 02:53 → 6WST 04-18 12:21
PROVIDERS: ADMIT Family Medicine Adult Medicine; ATTEND Internal Medicine
DX: A41.51 Sepsis due to Escherichia coli [E. coli] (principal); G06.2 Extradural and subdural abscess, unspecified; R65.21 Severe sepsis with septic shock; M46.26 Osteomyelitis of vertebra, lumbar region; G82.20 Paraplegia, unspecified; N13.6 Pyonephrosis; N13.8 Other obstructive and reflux uropathy; Z20.822 Contact with and (suspected) exposure to COVID-19; E86.0 Dehydration; N40.1 Benign prostatic hyperplasia with lower urinary tract symptoms; G62.9 Polyneuropathy, unspecified; E87.6 Hypokalemia; M48.061 Spinal stenosis, lumbar region without neurogenic claudication; M48.07 Spinal stenosis, lumbosacral region; M48.02 Spinal stenosis, cervical region; M46.46 Discitis, unspecified, lumbar region; E55.9 Vitamin D deficiency, unspecified; N40.0 Benign prostatic hyperplasia without lower urinary tract symptoms; G89.29 Other chronic pain; R79.89 Other specified abnormal findings of blood chemistry; F14.10 Cocaine abuse, uncomplicated; F10.129 Alcohol abuse with intoxication, unspecified; F19.90 Other psychoactive substance use, unspecified, uncomplicated; Z82.49 Family history of ischemic heart disease and other diseases of the circulatory system; Z87.891 Personal history of nicotine dependence
CPT/HCPCS: 36415; 71045; 72141; 72146; 72148; 73522; 74177; 80048; 80061; 80076; 80202; 80305; 80320; 81003; 82140; 82306; 82607; 82746; 82962; 83036; 83605; 83735; 84100; 84145; 84439; 84443; 84484; 85025; 85027; 85651; 87077; 87186; 87426; 93005; 93970; 97110; 97162; 97166; 97530; 97535; 99291; C1893; J1650; J2185; J2270; J2405; J2543; J3370; J3420; J7030; J7060; Q9967; G0480; J0131